=== PATIENT | male | born 1955 | race Caucasian/White ===

== ENCOUNTER 2019-08-17 22:39 | Emergency (ER) | payer MEDICARE ==
[2019-08-17] MEDS ORDERED: MORPHINE SULFATE 4 MG/ML SYRINGE IVP STA (23:38)
[2019-08-18] LABS: Basophils # (A) 0.1 k/uL (0-0.2); Basophils % (A) 1 %; Eosinophils # (A) 0.4 k/uL (0-0.7); Eosinophils % (A) 3 %; HCT 44.2 % (39.0-53.0); HGB 14.8 gm/dL (13.0-17.5); Lymphocytes # (A) 2.3 k/uL (1.0-4.8); Lymphocytes % (A) 14 %; MCH 31.6 pg (25.0-35.0); MCHC 33.6 g/dL (31.0-37.0); MCV 94.2 fL (80.0-100.0); Mean Platelet Volume 7.4; Monocytes # (A) 1.1 k/uL (0-1.0); Monocytes % (A) 7 %; Neutrophils # (A) 11.6 k/uL (1.3-7.7); Neutrophils % (A) 74 %; Platelet Count 241 k/uL (150-450); RBC 4.69 m/uL (4.30-5.90); RDW 12.3 % (11.5-15.5); WBC 15.7 k/uL (3.8-10.6)
[2019-08-18 00:14] LABS: ALT 31 U/L (21-72); AST 31 U/L (17-59); African American GFR (CKD) >90 (>60 ml/min/1.73 sqM); Albumin 4.2 g/dL (3.5-5.0); Alkaline Phosphatase 65 U/L (38-126); Anion Gap 12 mmol/L; Blood Urea Nitrogen 24 mg/dL (9-20); Calcium 9.3 mg/dL (8.4-10.2); Carbon Dioxide 20 mmol/L (22-30); Chloride 109 mmol/L (98-107); Glucose 100 mg/dL (74-99); Sodium 141 mmol/L (137-145); Total Bilirubin 0.4 mg/dL (0.2-1.3); Total Protein 6.9 g/dL (6.3-8.2)
[2019-08-18 00:16] LABS: Alcohol 92 mg/dL
--- NOTE | 2019-08-18 00:38 | CT ---
EXAMINATION TYPE: CT brain tin gomez DATE OF EXAM: 08/18/2019 COMPARISON: None HISTORY: fall Headache. Neck pain. CT DLP: 787.5 mGycm Automated exposure control for dose reduction was used. TECHNIQUE: CT scan of the head and cervical spine are performed without contrast. FINDINGS: There is some cerebral cortical atrophy. There is no mass effect nor midline shift. There is no sign of intracranial hemorrhage. The calvarium is intact. Cervical vertebra have normal alignment. There is degenerative spur formation throughout the cervical spine. There is no compression fracture. Facet joints are intact. There is spurring of the endplates from C3 to C7. Skull base is intact. IMPRESSION: Multilevel cervical mild spondylotic changes. No fracture. Mild cerebral atrophy. No acute intracranial abnormality.
--- NOTE | 2019-08-18 00:40 | CT ---
EXAMINATION TYPE: CT facial bones wo con DATE OF EXAM: 08/18/2019 COMPARISON: None HISTORY: fall CT DLP: 449.3 mGycm Automated exposure control for dose reduction was used. TECHNIQUE: CT scan of the sinuses is performed without contrast, axial images are obtained, coronal r eformatted images are also reviewed. FINDINGS: Orbital margins are intact. There is some mucosal thickening at the ostiomeatal complex on the right side. There is patency of the left ostiomeatal complex. There is no evidence of a blowout f racture. There is no evidence of orbital mass. The mandibular ring appears intact. Zygomatic arches appear normal. Nasal bone is intact. Orbital mar gins are intact. The maxilla is intact. There is mild mucosal thickening at the floor of the left max illary sinus. Temporomandibular joint spaces are fairly normal. IMPRESSION: Mild mucosal thickening left maxillary sinus. Mild right maxillary sinusitis. No fracture seen.
--- NOTE | 2019-08-18 00:43 | CT ---
EXAMINATION TYPE: CT thoracic spine wo con DATE OF EXAM: 08/18/2019 COMPARISON: None HISTORY: fall CT DLP: 2111 mGycm Automated exposure control for dose reduction was used. FINDINGS: There is degenerative spurring in the mid and lower thoracic spine. There is no compression fracture. There is no thoracic paraspinal mass. There is no evidence of focal bone destruction. Vertebra have fairly normal alignment. The posterior elements are intact. There is multilevel endplate posterior spur formation with some encroachment on the spinal canal. IMPRESSION: MULTILEVEL SPONDYLOTIC CHANGES. NO FRACTURE SEEN.
[2019-08-18] MEDS ORDERED: LIDOCAINE 1% INJ 10MG/ML (20 ML MDV) SQ ONE (01:27)
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
[2019-08-18] MEDS ORDERED: MORPHINE SULFATE 4 MG/ML SYRINGE IVP STA (02:33)
[2019-08-18 02:38] VITALS: BP 131/76; PULSE 62; RESP 17; TEMP 97.5
== END 2019-08-18 02:52 | disposition other institution (70) ==
LOC: EC 22:39
DX: S01.511A Laceration without foreign body of lip, initial encounter (principal); M54.2 Cervicalgia; J32.0 Chronic maxillary sinusitis; I10 Essential (primary) hypertension; F17.200 Nicotine dependence, unspecified, uncomplicated; Z79.1 Long term (current) use of non-steroidal anti-inflammatories (NSAID); Z79.899 Other long term (current) drug therapy; V94.0XXA Hitting object or bottom of body of water due to fall from watercraft, initial encounter
CPT/HCPCS: 36415; 80053; 85025; 72128; 72125; 70486; 70450; 99285; 12011; 96365; 96375; 96376; G0480; J2270 ×2; J0690; J2001; 80320